=== PATIENT | female | born 1930 | race Caucasian/White ===

== ENCOUNTER 2017-03-31 04:13 | Observation (INO) | payer OTHER ==
[~2017-03-31] VITALS: Ht 154.9 cm; Wt 59.0 kg
--- NOTE | ~2017-03-31 | EKG ---
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1930 Requested By: Natan Villeda Order Number: [id number] MD: Vince Sauer Measurements Intervals [place] Rate: 77 P: 35 MI: 56 QRS: -42 QRSD: 157 T: 109 QT: 483 QTc: 547 Interpretive Statements Sinus rhythm Left bundle branch block Compared to ECG 03/31/2017 04:19:20 No significant change was found Electronically Signed On 04-05-2017 8:43:06 CDT by Vince Sauer [email or web address] <ELECTRONICALLY SIGNED> By: Vince Sauer MD, [facility] 04/05/17 [id number] Vnice Sauer MD, [facility] /EPI
--- NOTE | ~2017-03-31 | H ---
[facility] [place] [address] HISTORY AND PHYSICAL Name: FABIOLA RINCON Room #: 430-P [facility]#: [id number] Admission: 03/31/17 Attend Phys: Natan Villeda MD Discharge: Date of : 32 Report #: [id number] THIS REPORT FOR: //name// CC: Natan Hearn DATE OF SERVICE: 03/31/2017 CHIEF COMPLAINT: Syncope and confusion. HISTORY OF PRESENT ILLNESS: The patient is a pleasant 87-year-old female. She was visiting her at the hospice house. Reportedly, he is terminally ill and close to . In this setting, she has been under significant stress and has not had much sleep. This morning around 3:00 a.m., she was noted by people at the facility to be unresponsive/poorly responsive and appearing to be confused with speech disturbance. She also had some dizziness and had had urinary incontinence. Subsequently, she was brought to the emergency room at [facility] where she continued to have some dizziness and nausea and hence has been admitted for further workup of her symptoms. By the time she has been seen by me this morning, she reports she feels exhausted; however, has no ongoing dizziness or nausea, but she has not tried to ambulate. She does not remember having any chest pain or significant dyspnea. She does report one loose stool and complains of vague mild abdominal pain in her lower region. She denies skin rashes or other problems at this time. PAST MEDICAL HISTORY: Includes: 1. Coronary artery disease post CABG as well as 5 stents, most recent 1 year prior. 2. TIA in 2009. 3. Hyperlipidemia. 4. Hypertension. 5. GERD. 6. Bovine aortic valve replacement. 7. Right lumbar L4-L5 fusion in 2010. 8. Cholecystectomy. 9. Varicose vein ablation. 10. Right hip replacement. 11. Partial hysterectomy. 12. Depression. 13. Hiatal hernia. MEDICATIONS: Please refer to reconciliation note. ALLERGIES: Reported to SULFA AND CODEINE. SOCIAL HISTORY: No significant tobacco use reported. No alcohol or drug use. [facility] [address] [place] [address] HISTORY AND PHYSICAL Name: FABIOLA RINCON Room #: 430-P [facility].#: [id number] Admission: 03/31/17 Attend Phys: Natan Villeda MD Discharge: Date of : 32 Report #: [id number] FAMILY HISTORY: Not contributory in this elderly female. REVIEW OF SYSTEMS: Twelve-point review of systems performed, negative except as mentioned in the history of present illness. PHYSICAL EXAMINATION: VITAL SIGNS: When seen today, the patient's vitals, afebrile, pulse is 68, respiratory rate 16, blood pressure 114/70, O2 sat 99 on room air. GENERAL: Awake, alert, somewhat ill-appearing woman in no acute distress. HEENT: Without obvious facial droop. Pupils are equal, round, reactive. CARDIOVASCULAR: S1, S2 present with systolic click as well as murmur auscultated. RESPIRATORY: Air entry present bilaterally. No wheezes, rales or rhonchi. ABDOMEN: Soft, minimally tender to palpation in lower abdomen without guarding, rebound or rigidity. EXTREMITIES: Without edema. NEUROLOGIC: Awake, alert. No obvious focal findings. Good strength in all extremities. LABS AND INVESTIGATIONS: CBC is unremarkable. Chemistry with minimally elevated glucose of 114. Troponin within normal range. Urinalysis without any concerning evidence of UTI. Chest x-ray shows no acute findings. EKG shows a left bundle brunch block and wondering lead 3 and lead V3 appear similar to EKG from 2011, which was compared by me. ASSESSMENT AND PLAN: This is an 87-year-old female who presented with a syncopal episode. 1. Syncopal episode, possibly vasovagal syncope in the setting of severe stress related to her ongoing issues with her dying versus bradycardic event or transient ischemic attack which are felt to be less likely. She may also have dehydration and a GI process contributing to the same, especially in light of recent antibiotic use. At the present time, we will complete a CT head to rule out any occult bleed, though this is less likely. We will monitor the patient on telemetry to look for any arrhythmias as well as complete set of serial cardiac enzymes. She does not have chest pain or other symptoms suggestive of acute coronary syndrome. No witnessed seizure activity is reported. We will also obtain a CT of her abdomen to rule out an acute abdominal process. 2. Coronary artery disease with stents and coronary artery bypass graft. Resume Plavix and aspirin as well as her beta gee and VICK inhibitor. 3. Deep venous thrombosis prophylaxis with Lovenox. 4. Hyperlipidemia. Resume her statin. 5. Gastroesophageal reflux disease. Resume Protonix. 6. The patient will be closely monitored with close clinical monitoring changes as felt appropriate. This may represent a transient ischemic attack; however, this is felt less likely. In either case, the patient's symptoms started at [facility] [address] [place] [address] HISTORY AND PHYSICAL Name: FABIOLA RINCON Room #: 430-P [facility].#: [id number] Admission: 03/31/17 Attend Phys: Natan Villeda MD Discharge: Date of : 32 Report #: [id number] least at 3:00 a.m. or possibly before that and she is well outside the TPA window. She also has no significant focal signs at the present time. <ELECTRONICALLY SIGNED> By: Natan Villeda MD 03/31/17 1235 [id number] Natan Villeda MD /nt
--- NOTE | ~2017-03-31 | EKG ---
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1930 Requested By: Andrea Johnson Order Number: [id number] MD: Vince Sauer Measurements Intervals [place] Rate: 60 P: 42 RI: 174 QRS: -42 QRSD: 161 T: 100 QT: 540 QTc: 540 Interpretive Statements Sinus rhythm Left bundle branch block Baseline wander in lead(s) III,V3 No previous ECG available for comparison Electronically Signed On 03-31-2017 8:01:09 CDT by Vince Sauer [email or web address] <ELECTRONICALLY SIGNED> By: Vince Sauer MD, [facility] 03/31/17 0801 0419 0419 Vince Sauer MD, [facility] /EPI
[~2017-03-31 04:13] MED LIST: ALIGN4 MG PO; ASPIRIN EC81 M1 PO; LEXAPRO 10 MG T10 MG PO; MULTIVITAMINS PO; PRILOSEC 20 MG20 MG PO; TOPROL XL25 MG PO; TRAMADOL 50 MG50 MG PO; ZOCOR40 MG PO
[2017-03-31 04:15] VITALS: BP 150/78
[2017-03-31] MEDS ORDERED: PRADAXA75 MG PO (04:42)
[2017-03-31] MEDS ORDERED: KEFLEX250 M1 PO (04:42)
[2017-03-31] MEDS ORDERED: CARVEDILOL12.5 MG PO (04:42)
[2017-03-31] MEDS ORDERED: PROTONIX 20 MG20 MG PO (04:43)
[2017-03-31] MEDS ORDERED: PLAVIX 75 MG TA75 MG PO (04:44)
[2017-03-31 04:46] LABS: ABSOLUTE NEUTROPHILS 4.6 thou/uL (1.4-8.2); BASOPHILS 0.5 % (0.0-2.0); EOSINOPHILS 1.7 % (0.0-3.0); HEMATOCRIT 35.3 % (37.0-47.0); HEMOGLOBIN 11.8 gm/dL (12.0-15.0); LYMPHOCYTES 26.2 % (24.0-44.0); MCH 30.1 pg (26.0-34.0); MCHC 33.3 g/dL (28.0-37.0); MCV 90.3 fL (80.0-100.0); MONOCYTES 10.5 % (1.0-8.0); PLATELET COUNT 189 thou/uL (150-400); POLYS 61.1 % (36.0-66.0); RBC 3.91 mil/uL (4.20-5.00); WBC 7.5 thou/uL (4.0-11.0)
[2017-03-31 04:49] LABS: MANUAL DIFF NO
[2017-03-31 04:55] LABS: ANION GAP 10 mmol/L (7-16); BUN 15 mg/dL (7-18); CALCIUM 9.1 mg/dL (8.5-10.1); CHLORIDE 106 mmol/L (98-107); CO2 28 mmol/L (21-32); CREATININE 0.9 mg/dL (0.6-1.0); GLUCOSE 114 mg/dL (74-106); POTASSIUM 3.6 mmol/L (3.5-5.1); SODIUM 144 mmol/L (136-145)
[2017-03-31 05:03] LABS: ALBUMIN 3.6 g/dL (3.4-5.0); ALKALINE PHOSPHATASE 74 U/L (46-116); SGOT 17 U/L (15-37); SGPT 17 U/L (30-65); TOTAL BILIRUBIN 0.5 mg/dL (<0.1-1.0); TOTAL PROTEIN 6.8 g/dL (6.4-8.2); TROPONIN-I < 0.04 ng/mL (<0.04-0.07)
[2017-03-31 05:53] LABS: URINE BILIRUBIN 1+ (Negative); URINE BLOOD TRACE (Negative); URINE COLOR YELLOW; URINE GLUCOSE-RANDOM* NEGATIVE (Negative); URINE KETONES NEGATIVE (Negative); URINE LEUKOCYTES-REFLEX NEGATIVE (Negative); URINE PROTEIN (DIPSTICK) TRACE (Negative); URINE SPECIFIC GRAVITY >= 1.030 (1.003-1.035); URINE UROBILINOGEN 0.2 E.U./dl (0.2-1.0)
[2017-03-31 06:18] LABS: ICTOTEST (BILI CONFIRMATORY) Positive (Negative)
[2017-03-31 07:25] VITALS: BP 114/70
[2017-03-31 08:47] VITALS: BP 108/60
[2017-03-31] MEDS ORDERED: LISINOPRIL5 MG PO (11:31)
[2017-03-31] MEDS ORDERED: VITAMIN D2000 UNIT PO (11:32)
[2017-03-31] MEDS ORDERED: CO Q-10100 MG PO (11:32)
[2017-03-31] MEDS ORDERED: ATORVASTATIN CA40 MG PO ×2 (11:33)
[2017-03-31] MEDS ORDERED: IMDUR 30 MG TAB30 M1 PO (11:34)
[2017-03-31] MEDS ORDERED: RANEXA500 MG PO (11:34)
[2017-03-31 15:45] VITALS: BP 124/63
[2017-04-01 03:17] VITALS: BP 110/56
[2017-04-01 05:48] LABS: HEMATOCRIT 29.4 % (37.0-47.0); MCH 29.7 pg (26.0-34.0); MCHC 32.6 g/dL (28.0-37.0); RBC 3.23 mil/uL (4.20-5.00); RDW 14.8 % (10.5-14.5); WBC 7.6 thou/uL (4.0-11.0)
[2017-04-01 05:49] LABS: HEMOGLOBIN 9.6 gm/dL (12.0-15.0)
[2017-04-01 05:56] LABS: CALCIUM 8.3 mg/dL (8.5-10.1); CREATININE 0.7 mg/dL (0.6-1.0); POTASSIUM 3.4 mmol/L (3.5-5.1)
[2017-04-01 07:13] VITALS: BP 111/61
[2017-04-01 10:47] VITALS: BP 111/61
== END 2017-04-01 11:08 | disposition home or self-care (01) ==
LOC: ER 04:13 → 4E 06:47 → EROBS 06:47 → 4E 06:47
PROVIDERS: Emergency Medicine; Hospitalist
DX: R55 Syncope and collapse (principal); I25.10 Atherosclerotic heart disease of native coronary artery without angina pectoris; I10 Essential (primary) hypertension; E78.5 Hyperlipidemia, unspecified; K21.9 Gastro-esophageal reflux disease without esophagitis; R11.10 Vomiting, unspecified; I83.90 Asymptomatic varicose veins of unspecified lower extremity; F32.9 Major depressive disorder, single episode, unspecified; K44.9 Diaphragmatic hernia without obstruction or gangrene; Z86.73 Personal history of transient ischemic attack (TIA), and cerebral infarction without residual deficits; Z95.5 Presence of coronary angioplasty implant and graft